=== PATIENT | female | born 1930 | race Caucasian/White ===

== ENCOUNTER 2016-05-05 11:54 | Inpatient (IN) | payer MEDICARE, OTHER ==
--- NOTE | 2016-05-05 12:10 | History and Physical Report ---
History of Present Illnes - History of Present Illness Reason for Visit: Weakness History of Present Illness: Patient admitted to [facility] on 04-28-16 with L intertrochanteric hip fracture after getting her feet wrapped up and fell at her assisted living facility. She underwent dynamic screw fixation to the L hip by Dr. Persaud. While at [facility], she would refuse to swallow. EGD showed a stricture and she underwent dilitation . She now is limited to no cold drinks. Also had urinary retention. Samuels was placed. It was discontinued twice but bladder scans showed bladder not emptying so though samuels was stopped 05/03. Therefore it was replaced yesterday. She also has a h/o HTN. HCTZ and lisinopril were stopped. Due to age, they recommend not restarting HCTZ. BP has been doing ok. Feeling ok today. Mild pain in L hip. Not much of an appetite. PCP is Dr. Dick ([phone]). - Past Medical History Cardiac: HTN, Hyperlipidemia, Other (Complete heart block - s/p pacemaker) Gastrointestinal: GERD Psych: Other (Dementia) Renal/: UTI (recurrent) - Past Surgical History Past Surgical History: Cholecystectomy, Cataract Removal, Hysterectomy (with BSO ), Other (L hip pinning after fracture 05/13.), Total Hip Replacement (R), Total Knee Replacement (B), Other (Pacemaker) - Past Social History Smoke: No Alcohol: None [facility] Other (Daughter Sulema Glynn is DPOA) - Health Maintenance Health Maintenance: Influenza Vaccine, Pneumococcal Vaccine Influenza Vaccine: Current for this Influenza Season Pneumonia Vaccine: Yes Resuscitation Status: Resusciation Status Resuscitation Status Do Not Resuscitate Review of Systems - Review of Systems Constitutional: Weakness. negative: Fever Eyes: negative: pain ENT: negative: Ear Pain Respiratory: negative: Cough Cardiovascular: negative: Chest Pain Gastrointestinal: negative: Nausea, Abdominal Pain Genitourinary: negative: Dysuria Musculoskeletal: negative: Neck Pain Skin: negative: Rash Neurological: Weakness - Medications/Allergies Allergies/Adverse Reactions: Allergies Allergy/AdvReac Type Severity Reaction Status Date / Time aspirin Allergy Verified 05/05/16 12:13 iodine Allergy Verified 05/05/16 12:13 Home Medications: Home Medications Acetaminophen [Tylenol] 650 mg PO Q4 PRN 05/05/16 Bisacodyl 10 mg RC D PRN 05/05/16 Cholecalciferol [Vitamin D-3] 2,000 unit PO DAILY 05/05/16 Cranberry Fruit [Cranberry] 400 mg PO D 05/05/16 Docusate Sodium [Colace] 100 mg PO BID 05/05/16 Enoxaparin Sodium [Lovenox] 40 mg SQ QD 05/05/16 Fluticasone Propionate [Flonase Nasal [place]] 2 spray NS DAILY 05/05/16 Magnesium Hydroxide [Milk of Magnesia] 2,400 mg PO D PRN 05/05/16 Metoprolol Tartrate [Lopressor] 100 mg PO Q12 05/05/16 Pantoprazole Sodium [Protonix] 40 mg PO 0700 05/05/16 Polyethylene Glycol 3350 [Miralax] 17 gm PO 1100 PRN 05/05/16 Exam - Exam General: Alert, Oriented to Person, Oriented to Place, Cooperative, No acute distress HEENT: Atraumatic, PERRLA, EOMI, Mouth Mucous membr. moist/[place], Nose Mucous membr. moist/[place] Neck: Normal Range of Motion Lungs: Clear to auscultation, Normal air movement, Speaks full Sentences Cardiovascular: Regular rate Abdomen: Normal bowel sounds, Soft Integumentary: Normal Extremities: Other (L hip incision - stapled wound C/D/I) Neurological: Generalized Weakness Psych/Mental Status: Mood NL, Appropriate Affect Assessment/Plan - Assessment/Plan (1) Fracture of left hip Status: Acute Current Visit: Yes Qualifiers: Encounter type: subsequent encounter Fracture type: closed Fracture healing: with routine healing Qualified Code(s): S72.002D - Fracture of unspecified part of neck of left femur, subsequent encounter for closed fracture with routine healing Plan: Plan for lovenox for 2 weeks for DVT prevention. Ortho ordered ASA 81mg daily after that however it is listed as patient allergy. Will check with family and patient on that. Xrays in a month for Dr. Persaud. [place] out in 10 days with steristrips to be placed. (2) HTN (hypertension) Status: Chronic Current Visit: No Qualifiers: Hypertension type: essential hypertension Qualified Code(s): I10 - Essential (primary) hypertension Plan: Watch closely off HCTZ and lisinopril. Consider restart lisinopril if goes up. (3) Urinary retention Status: Acute Current Visit: Yes Plan: Continue samuels at this time. Trial of discontinuing next week. (4) Dysphagia Status: Acute Current Visit: Yes Qualifiers: Dysphagia type: other dysphagia Qualified Code(s): R13.19 - Other dysphagia Plan: No cold liquids. Keep upright when drinking. Plan ST consult. (5) Unsteady gait Status: Acute Current Visit: Yes Plan: Admit to SNF for PT/OT/ST. (6) Dementia Status: Chronic Current Visit: No Qualifiers: Dementia type: unspecified type Dementia behavioral disturbance: without behavioral disturbance Qualified Code(s): F03.90 - Unspecified dementia without behavioral disturbance Plan: Stable. (7) Vitamin D deficiency Status: Acute Current Visit: Yes Plan: Vit D replacement started at [facility]. VTE Assessment - RISK FACTOR SCORE VTE RISK FACTOR SCORES: AGE OVER 60 YEARS, HIP, PELVIS, OR LEG FX - RISK VTE MODERATE RISK: SCORE OF 2 (RISK PROXIMAL DVT 2-4%) PROPHYAXIS NEEDED
[2016-05-05] MEDS ORDERED: MAGNESIUM HYDROXIDE 400 MG/5 ML 30ML UDC PO PRN (12:25)
[2016-05-05] MEDS ORDERED: BISACODYL 10 MG SUPP.RECT RC PRN (12:25)
[2016-05-05] MEDS ORDERED: POLYETHYLENE GLYCOL 3350 17 GM POWD.PACK PO PRN (12:25)
[2016-05-05] MEDS: ENOXAPARIN SODIUM 30 MG/0.3 ML DISP.SYRIN SQ SCH (13:22)
[2016-05-05] MEDS: ACETAMINOPHEN 325 MG TABLET PO PRN ×2 (13:34→21:00)
[2016-05-05 16:22] VITALS: BMI 35.3
[2016-05-05] MEDS: METOPROLOL TARTRATE 50 MG TABLET PO SCH (20:24)
[2016-05-05] MEDS: DOCUSATE SODIUM 100 MG CAPSULE PO SCH (20:24)
[2016-05-06] MEDS: PANTOPRAZOLE SODIUM 40 MG TABLET PO SCH (05:20)
[2016-05-06] MEDS ORDERED: CRANBERRY FRUIT 400 MG PO SCH (09:00)
[2016-05-06] MEDS: FLUTICASONE PROPIONATE 120 SPRAY/16 GR BOTTLE NS SCH (09:07)
[2016-05-06] MEDS: METOPROLOL TARTRATE 50 MG TABLET PO SCH ×2 (09:08→20:09)
[2016-05-06] MEDS: CHOLECALCIFEROL 1,000 UNIT TABLET PO SCH (09:08)
[2016-05-06] MEDS: DOCUSATE SODIUM 100 MG CAPSULE PO SCH ×2 (09:23→20:08)
[2016-05-06] MEDS: ENOXAPARIN SODIUM 30 MG/0.3 ML DISP.SYRIN SQ SCH (12:51)
[2016-05-06] MEDS: ACETAMINOPHEN 325 MG TABLET PO PRN (20:12)
[2016-05-07] MEDS: PANTOPRAZOLE SODIUM 40 MG TABLET PO SCH (06:38)
[2016-05-07] MEDS: DOCUSATE SODIUM 100 MG CAPSULE PO SCH ×2 (10:26→20:07)
[2016-05-07] MEDS: ACETAMINOPHEN 325 MG TABLET PO PRN (10:27)
[2016-05-07] MEDS: METOPROLOL TARTRATE 50 MG TABLET PO SCH ×2 (10:27→20:07)
[2016-05-07] MEDS: CHOLECALCIFEROL 1,000 UNIT TABLET PO SCH (10:27)
[2016-05-07] MEDS: CRANBERRY EXTRACT 405 MG PO SCH (10:27)
[2016-05-07] MEDS: FLUTICASONE PROPIONATE 120 SPRAY/16 GR BOTTLE NS SCH (10:38)
[2016-05-07] MEDS: ENOXAPARIN SODIUM 30 MG/0.3 ML DISP.SYRIN SQ SCH (12:54)
[2016-05-07] MEDS ORDERED: SALINE FLUSH 10 ML DISP.SYRIN IV SCH (21:00)
[2016-05-08] MEDS: PANTOPRAZOLE SODIUM 40 MG TABLET PO SCH (06:04)
[2016-05-08] MEDS: FLUTICASONE PROPIONATE 120 SPRAY/16 GR BOTTLE NS SCH (09:37)
[2016-05-08] MEDS: METOPROLOL TARTRATE 50 MG TABLET PO SCH ×2 (09:37→20:06)
[2016-05-08] MEDS: CRANBERRY EXTRACT 405 MG PO SCH (09:37)
[2016-05-08] MEDS: DOCUSATE SODIUM 100 MG CAPSULE PO SCH ×2 (09:38→20:05)
[2016-05-08] MEDS: CHOLECALCIFEROL 1,000 UNIT TABLET PO SCH (09:38)
[2016-05-08] MEDS: ACETAMINOPHEN 325 MG TABLET PO PRN (09:38)
[2016-05-08] MEDS: ENOXAPARIN SODIUM 30 MG/0.3 ML DISP.SYRIN SQ SCH (12:25)
[2016-05-09] MEDS: PANTOPRAZOLE SODIUM 40 MG TABLET PO SCH (06:12)
[2016-05-09] MEDS: ACETAMINOPHEN 325 MG TABLET PO PRN ×2 (09:32→23:25)
[2016-05-09] MEDS: DOCUSATE SODIUM 100 MG CAPSULE PO SCH ×2 (09:32→20:03)
[2016-05-09] MEDS: FLUTICASONE PROPIONATE 120 SPRAY/16 GR BOTTLE NS SCH (09:32)
[2016-05-09] MEDS: CHOLECALCIFEROL 1,000 UNIT TABLET PO SCH (09:32)
[2016-05-09] MEDS: CRANBERRY EXTRACT 405 MG PO SCH (09:32)
[2016-05-09] MEDS: METOPROLOL TARTRATE 50 MG TABLET PO SCH ×2 (09:32→20:03)
[2016-05-09] MEDS: ENOXAPARIN SODIUM 30 MG/0.3 ML DISP.SYRIN SQ SCH (12:33)
[2016-05-10] MEDS: PANTOPRAZOLE SODIUM 40 MG TABLET PO SCH (05:43)
[2016-05-10] MEDS: FLUTICASONE PROPIONATE 120 SPRAY/16 GR BOTTLE NS SCH (08:37)
[2016-05-10] MEDS: CRANBERRY EXTRACT 405 MG PO SCH (08:37)
[2016-05-10] MEDS: METOPROLOL TARTRATE 50 MG TABLET PO SCH ×2 (08:37→20:19)
[2016-05-10] MEDS: DOCUSATE SODIUM 100 MG CAPSULE PO SCH ×2 (08:37→20:19)
[2016-05-10] MEDS: CHOLECALCIFEROL 1,000 UNIT TABLET PO SCH (08:37)
[2016-05-10] MEDS: ACETAMINOPHEN 325 MG TABLET PO PRN ×2 (10:31→20:29)
--- NOTE | 2016-05-10 12:27 | Inpatient Progress Note ---
Subjective - Required Recertification Statement I anticipate X number of days because-include discharge plan: 10 - Review of Systems Subjective: Feels ok. Getting stronger. Pain controlled. Objective - Exam Vitals and I&O: Vital Signs Temp 97.5 F L 05/09/16 21:00 Pulse 78 05/09/16 21:00 Resp 18 05/09/16 21:00 BP 157/60 05/09/16 21:00 Pulse Ox 96 05/09/16 21:00 Intake & Output 05/09/16 05/10/16 05/10/16 23:59 11:59 23:59 Intake Total 840 360 Output Total 600 Balance 840 -240 Weight 81.647 kg Intake: Oral 840 360 Output: Urine 600 Other: Voiding Method Toilet # Voids 650 # Bowel Movements 0 General: Alert, Oriented to Person, Oriented to Place, Oriented to Time, Cooperative, No acute distress Assessment/Plan - Assessment/Plan (1) Fracture of left hip Status: Acute Current Visit: Yes Qualifiers: Encounter type: subsequent encounter Fracture type: closed Fracture healing: with routine healing Qualified Code(s): S72.002D - Fracture of unspecified part of neck of left femur, subsequent encounter for closed fracture with routine healing (2) HTN (hypertension) Status: Chronic Current Visit: No Qualifiers: Hypertension type: essential hypertension Qualified Code(s): I10 - Essential (primary) hypertension Plan: stable. (3) Urinary retention Status: Acute Current Visit: Yes Plan: Will plan to trial d/c samuels this week. (4) Dysphagia Status: Acute Current Visit: Yes Qualifiers: Dysphagia type: other dysphagia Qualified Code(s): R13.19 - Other dysphagia (5) Unsteady gait Status: Acute Current Visit: Yes Plan: cont. PT/OT/ST. (6) Dementia Status: Chronic Current Visit: No Qualifiers: Dementia type: unspecified type Dementia behavioral disturbance: without behavioral disturbance Qualified Code(s): F03.90 - Unspecified dementia without behavioral disturbance (7) Vitamin D deficiency Status: Acute Current Visit: Yes
[2016-05-10] MEDS: ENOXAPARIN SODIUM 30 MG/0.3 ML DISP.SYRIN SQ SCH (13:01)
[2016-05-11] MEDS: PANTOPRAZOLE SODIUM 40 MG TABLET PO SCH (06:20)
[2016-05-11] MEDS: FLUTICASONE PROPIONATE 120 SPRAY/16 GR BOTTLE NS SCH (08:13)
[2016-05-11] MEDS: CHOLECALCIFEROL 1,000 UNIT TABLET PO SCH (08:13)
[2016-05-11] MEDS: ACETAMINOPHEN 325 MG TABLET PO PRN ×2 (08:13→12:41)
[2016-05-11] MEDS: DOCUSATE SODIUM 100 MG CAPSULE PO SCH ×2 (08:14→20:38)
[2016-05-11] MEDS: CRANBERRY EXTRACT 405 MG PO SCH (08:14)
[2016-05-11] MEDS: METOPROLOL TARTRATE 50 MG TABLET PO SCH ×2 (08:14→20:38)
[2016-05-11] MEDS: ENOXAPARIN SODIUM 30 MG/0.3 ML DISP.SYRIN SQ SCH (12:36)
[2016-05-12] MEDS: PANTOPRAZOLE SODIUM 40 MG TABLET PO SCH (06:11)
[2016-05-12] MEDS: ACETAMINOPHEN 325 MG TABLET PO PRN ×3 (09:15→17:46)
[2016-05-12] MEDS: DOCUSATE SODIUM 100 MG CAPSULE PO SCH ×2 (09:15→20:07)
[2016-05-12] MEDS: CHOLECALCIFEROL 1,000 UNIT TABLET PO SCH (09:15)
[2016-05-12] MEDS: METOPROLOL TARTRATE 50 MG TABLET PO SCH ×2 (09:15→20:07)
[2016-05-12] MEDS: FLUTICASONE PROPIONATE 120 SPRAY/16 GR BOTTLE NS SCH (09:15)
[2016-05-12] MEDS: CRANBERRY EXTRACT 405 MG PO SCH (09:15)
[2016-05-12] MEDS: ENOXAPARIN SODIUM 30 MG/0.3 ML DISP.SYRIN SQ SCH (12:57)
[2016-05-13] MEDS: ACETAMINOPHEN 325 MG TABLET PO PRN ×2 (05:39→11:32)
[2016-05-13] MEDS: PANTOPRAZOLE SODIUM 40 MG TABLET PO SCH (05:39)
[2016-05-13] MEDS: FLUTICASONE PROPIONATE 120 SPRAY/16 GR BOTTLE NS SCH (08:00)
[2016-05-13] MEDS: DOCUSATE SODIUM 100 MG CAPSULE PO SCH ×2 (08:00→20:07)
[2016-05-13] MEDS: CRANBERRY EXTRACT 405 MG PO SCH (08:00)
[2016-05-13] MEDS: CHOLECALCIFEROL 1,000 UNIT TABLET PO SCH (08:01)
[2016-05-13] MEDS: METOPROLOL TARTRATE 50 MG TABLET PO SCH ×2 (08:01→20:08)
[2016-05-13] MEDS: ENOXAPARIN SODIUM 30 MG/0.3 ML DISP.SYRIN SQ SCH (14:04)
[2016-05-14] MEDS: PANTOPRAZOLE SODIUM 40 MG TABLET PO SCH (06:08)
[2016-05-14] MEDS: DOCUSATE SODIUM 100 MG CAPSULE PO SCH ×2 (08:44→20:07)
[2016-05-14] MEDS: CHOLECALCIFEROL 1,000 UNIT TABLET PO SCH (08:44)
[2016-05-14] MEDS: METOPROLOL TARTRATE 50 MG TABLET PO SCH ×2 (08:44→20:07)
[2016-05-14] MEDS: CRANBERRY EXTRACT 405 MG PO SCH (08:44)
[2016-05-14] MEDS: FLUTICASONE PROPIONATE 120 SPRAY/16 GR BOTTLE NS SCH (08:44)
[2016-05-14] MEDS: ENOXAPARIN SODIUM 30 MG/0.3 ML DISP.SYRIN SQ SCH (12:49)
[2016-05-15] MEDS: PANTOPRAZOLE SODIUM 40 MG TABLET PO SCH (05:46)
[2016-05-15] MEDS: DOCUSATE SODIUM 100 MG CAPSULE PO SCH ×2 (08:25→19:46)
[2016-05-15] MEDS: FLUTICASONE PROPIONATE 120 SPRAY/16 GR BOTTLE NS SCH (08:26)
[2016-05-15] MEDS: METOPROLOL TARTRATE 50 MG TABLET PO SCH ×2 (08:26→19:40)
[2016-05-15] MEDS: CHOLECALCIFEROL 1,000 UNIT TABLET PO SCH (08:26)
[2016-05-15] MEDS: CRANBERRY EXTRACT 405 MG PO SCH (08:28)
[2016-05-15] MEDS: ENOXAPARIN SODIUM 30 MG/0.3 ML DISP.SYRIN SQ SCH (13:05)
[2016-05-16] MEDS: PANTOPRAZOLE SODIUM 40 MG TABLET PO SCH (06:40)
[2016-05-16] MEDS: FLUTICASONE PROPIONATE 120 SPRAY/16 GR BOTTLE NS SCH (08:40)
[2016-05-16] MEDS: DOCUSATE SODIUM 100 MG CAPSULE PO SCH ×2 (08:41→21:00)
[2016-05-16] MEDS: CHOLECALCIFEROL 1,000 UNIT TABLET PO SCH (08:41)
[2016-05-16] MEDS: METOPROLOL TARTRATE 50 MG TABLET PO SCH ×2 (08:41→21:00)
[2016-05-16] MEDS: ACETAMINOPHEN 325 MG TABLET PO PRN ×2 (08:41→21:00)
[2016-05-16] MEDS: CRANBERRY EXTRACT 405 MG PO SCH (08:43)
[2016-05-16] MEDS: ENOXAPARIN SODIUM 30 MG/0.3 ML DISP.SYRIN SQ SCH (13:28)
[2016-05-17] MEDS: PANTOPRAZOLE SODIUM 40 MG TABLET PO SCH (06:43)
[2016-05-17] MEDS: METOPROLOL TARTRATE 50 MG TABLET PO SCH ×2 (08:25→20:12)
[2016-05-17] MEDS: CHOLECALCIFEROL 1,000 UNIT TABLET PO SCH (08:25)
[2016-05-17] MEDS: DOCUSATE SODIUM 100 MG CAPSULE PO SCH ×2 (08:25→20:12)
[2016-05-17] MEDS: CRANBERRY EXTRACT 405 MG PO SCH (08:25)
[2016-05-17] MEDS: FLUTICASONE PROPIONATE 120 SPRAY/16 GR BOTTLE NS SCH (08:25)
[2016-05-17] MEDS: ENOXAPARIN SODIUM 30 MG/0.3 ML DISP.SYRIN SQ SCH (13:02)
[2016-05-18] MEDS: PANTOPRAZOLE SODIUM 40 MG TABLET PO SCH (06:12)
[2016-05-18] MEDS: DOCUSATE SODIUM 100 MG CAPSULE PO SCH ×2 (08:13→20:11)
[2016-05-18] MEDS: FLUTICASONE PROPIONATE 120 SPRAY/16 GR BOTTLE NS SCH (08:14)
[2016-05-18] MEDS: CRANBERRY EXTRACT 405 MG PO SCH (08:15)
[2016-05-18] MEDS: METOPROLOL TARTRATE 50 MG TABLET PO SCH ×2 (08:15→20:11)
[2016-05-18] MEDS: CHOLECALCIFEROL 1,000 UNIT TABLET PO SCH (08:15)
[2016-05-18] MEDS: ENOXAPARIN SODIUM 30 MG/0.3 ML DISP.SYRIN SQ SCH (13:29)
[2016-05-19] MEDS: PANTOPRAZOLE SODIUM 40 MG TABLET PO SCH (06:15)
--- NOTE | 2016-05-19 07:41 | Inpatient Progress Note ---
Subjective - Required Recertification Statement I anticipate X number of days because-include discharge plan: 7 - Review of Systems Events since last encounter: Patient has been having urinary retention since surgery. Samuels was d/c'd 05/10 but replaced 05/11 due to inability to void. Mild cough. No SOB. Subjective: Feels ok. Getting stronger. Pain controlled. Objective - Exam Vitals and I&O: Vital Signs Temp 97.8 F 05/18/16 21:00 Pulse 78 05/18/16 21:00 Resp 20 05/18/16 21:00 BP 136/68 05/18/16 21:00 Pulse Ox 92 05/18/16 21:00 Intake & Output 05/18/16 05/18/16 05/19/16 11:59 23:59 11:59 Intake Total 240 1280 Output Total 600 950 Balance -360 330 Intake: Oral 240 1280 Output: Urine 600 950 Other: Voiding Method Toilet Indwelling Catheter # Bowel Movements 1 General: Alert, Oriented to Person, Oriented to Place, Oriented to Time, Cooperative, No acute distress Lungs: Clear to auscultation, Normal air movement, Speaks full Sentences Assessment/Plan - Assessment/Plan (1) Fracture of left hip Status: Acute Current Visit: Yes Qualifiers: Encounter type: subsequent encounter Fracture type: closed Fracture healing: with routine healing Qualified Code(s): S72.002D - Fracture of unspecified part of neck of left femur, subsequent encounter for closed fracture with routine healing Plan: Cont. PT/OT. (2) Urinary retention Status: Acute Current Visit: Yes Plan: Trial of discontinuing samuels. (3) Unsteady gait Status: Acute Current Visit: Yes (4) Cough Status: Acute Current Visit: Yes Plan: CXR today.
[2016-05-19] MEDS: CRANBERRY EXTRACT 405 MG PO SCH (08:51)
[2016-05-19] MEDS: FLUTICASONE PROPIONATE 120 SPRAY/16 GR BOTTLE NS SCH (08:51)
[2016-05-19] MEDS: DOCUSATE SODIUM 100 MG CAPSULE PO SCH ×2 (08:51→19:35)
[2016-05-19] MEDS: CHOLECALCIFEROL 1,000 UNIT TABLET PO SCH (08:52)
[2016-05-19] MEDS: METOPROLOL TARTRATE 50 MG TABLET PO SCH ×2 (08:52→19:35)
--- NOTE | 2016-05-19 20:11 | Diagnostic Imaging Report ---
[facility] [id number] [facility].[address] [address] ~ ~ ~ ~ Report Submission Date: May 19, 2016 3:15:25 PM SOUND TRUCK OPERATOR Patient ~ Study Name: MARIELOS RUDOLPH ~ Date: May 19, 2016 11:03:55 AM SOUND TRUCK OPERATOR ~ Modality Type: CR Gender: F ~ Description: CHEST : [birth year] ~ Institution: [facility] Physician: LIZZIE RAYMUNDO ~ ~ ~ ~ Chest 2 views History: 3 weeks of cough Findings: The lungs are clear and mildly hyperinflated. No pleural effusions are observed. Atherosclerosis and dual lead transvenous pacemaker are present. Heart size is normal. Impression: Hyperinflation and pacemaker. ~ Electronically signed on May 19, 2016 3:15:25 PM SOUND TRUCK OPERATOR by: Oniel COOLEY
[2016-05-20] MEDS: PANTOPRAZOLE SODIUM 40 MG TABLET PO SCH (06:17)
[2016-05-20] MEDS: CHOLECALCIFEROL 1,000 UNIT TABLET PO SCH (08:21)
[2016-05-20] MEDS: METOPROLOL TARTRATE 50 MG TABLET PO SCH ×2 (08:21→19:49)
[2016-05-20] MEDS: CRANBERRY EXTRACT 405 MG PO SCH (08:22)
[2016-05-20] MEDS: FLUTICASONE PROPIONATE 120 SPRAY/16 GR BOTTLE NS SCH (08:22)
[2016-05-20] MEDS: DOCUSATE SODIUM 100 MG CAPSULE PO SCH ×2 (08:22→19:48)
[2016-05-21] MEDS: PANTOPRAZOLE SODIUM 40 MG TABLET PO SCH (06:15)
[2016-05-21] MEDS: FLUTICASONE PROPIONATE 120 SPRAY/16 GR BOTTLE NS SCH (09:02)
[2016-05-21] MEDS: DOCUSATE SODIUM 100 MG CAPSULE PO SCH ×2 (09:02→19:40)
[2016-05-21] MEDS: METOPROLOL TARTRATE 50 MG TABLET PO SCH ×2 (09:02→19:40)
[2016-05-21] MEDS: CRANBERRY EXTRACT 405 MG PO SCH (09:02)
[2016-05-21] MEDS: CHOLECALCIFEROL 1,000 UNIT TABLET PO SCH (09:03)
[2016-05-22] MEDS: PANTOPRAZOLE SODIUM 40 MG TABLET PO SCH (06:04)
[2016-05-22] MEDS: METOPROLOL TARTRATE 50 MG TABLET PO SCH ×2 (08:33→21:48)
[2016-05-22] MEDS: FLUTICASONE PROPIONATE 120 SPRAY/16 GR BOTTLE NS SCH (08:33)
[2016-05-22] MEDS: DOCUSATE SODIUM 100 MG CAPSULE PO SCH ×2 (08:33→21:48)
[2016-05-22] MEDS: CHOLECALCIFEROL 1,000 UNIT TABLET PO SCH (08:33)
[2016-05-22] MEDS: CRANBERRY EXTRACT 405 MG PO SCH (08:33)
[2016-05-23] MEDS: PANTOPRAZOLE SODIUM 40 MG TABLET PO SCH (06:05)
[2016-05-23] MEDS: DOCUSATE SODIUM 100 MG CAPSULE PO SCH ×2 (08:25→20:15)
[2016-05-23] MEDS: FLUTICASONE PROPIONATE 120 SPRAY/16 GR BOTTLE NS SCH (08:26)
[2016-05-23] MEDS: METOPROLOL TARTRATE 50 MG TABLET PO SCH ×2 (08:27→20:15)
[2016-05-23] MEDS: CHOLECALCIFEROL 1,000 UNIT TABLET PO SCH (08:28)
[2016-05-23] MEDS: ACETAMINOPHEN 325 MG TABLET PO PRN (08:36)
[2016-05-23] MEDS: CRANBERRY EXTRACT 405 MG PO SCH (08:36)
[2016-05-24] MEDS: PANTOPRAZOLE SODIUM 40 MG TABLET PO SCH (06:17)
[2016-05-24] MEDS: CHOLECALCIFEROL 1,000 UNIT TABLET PO SCH (09:42)
[2016-05-24] MEDS: FLUTICASONE PROPIONATE 120 SPRAY/16 GR BOTTLE NS SCH (09:42)
[2016-05-24] MEDS: METOPROLOL TARTRATE 50 MG TABLET PO SCH ×2 (09:43→20:13)
[2016-05-24] MEDS: DOCUSATE SODIUM 100 MG CAPSULE PO SCH ×2 (09:43→20:13)
[2016-05-24] MEDS: CRANBERRY EXTRACT 405 MG PO SCH (09:45)
[2016-05-25] MEDS: PANTOPRAZOLE SODIUM 40 MG TABLET PO SCH (06:19)
--- NOTE | 2016-05-25 07:56 | Inpatient Progress Note ---
Subjective - Required Recertification Statement I anticipate X number of days because-include discharge plan: 7 - Review of Systems Subjective: Patient feels good. Voiding well since samuels out. Cough almost gone. Objective - Exam Vitals and I&O: Vital Signs Temp 98.1 F 05/24/16 21:00 Pulse 74 05/24/16 21:00 Resp 18 05/24/16 21:00 BP 134/70 05/24/16 21:00 Pulse Ox 93 05/24/16 21:00 Intake & Output 05/24/16 05/24/16 05/25/16 11:59 23:59 11:59 Intake Total 360 600 Balance 360 600 Weight 83.915 kg Intake: Oral 360 600 Other: Voiding Method Toilet Toilet # Voids 3 2 General: Alert, Oriented to Person, Oriented to Place, Oriented to Time, Cooperative, No acute distress Lungs: Clear to auscultation, Normal air movement, Speaks full Sentences Assessment/Plan - Assessment/Plan (1) Fracture of left hip Status: Acute Current Visit: Yes Qualifiers: Encounter type: subsequent encounter Fracture type: closed Fracture healing: with routine healing Qualified Code(s): S72.002D - Fracture of unspecified part of neck of left femur, subsequent encounter for closed fracture with routine healing Plan: Cont. PT/OT. Plan d/c next week. (2) Urinary retention Status: Acute Current Visit: Yes Plan: Doing well since samuels discontinued. (3) Unsteady gait Status: Acute Current Visit: Yes (4) Cough Status: Acute Current Visit: Yes Plan: CXR negative last week. Cough almost resolved.
[2016-05-25] MEDS: ACETAMINOPHEN 325 MG TABLET PO PRN (08:55)
[2016-05-25] MEDS: CHOLECALCIFEROL 1,000 UNIT TABLET PO SCH (08:55)
[2016-05-25] MEDS: FLUTICASONE PROPIONATE 120 SPRAY/16 GR BOTTLE NS SCH (08:55)
[2016-05-25] MEDS: DOCUSATE SODIUM 100 MG CAPSULE PO SCH ×2 (08:56→20:24)
[2016-05-25] MEDS: METOPROLOL TARTRATE 50 MG TABLET PO SCH ×2 (08:56→20:24)
[2016-05-25] MEDS: CRANBERRY EXTRACT 405 MG PO SCH (08:56)
[2016-05-26] MEDS: PANTOPRAZOLE SODIUM 40 MG TABLET PO SCH (05:42)
[2016-05-26] MEDS: FLUTICASONE PROPIONATE 120 SPRAY/16 GR BOTTLE NS SCH (09:03)
[2016-05-26] MEDS: ACETAMINOPHEN 325 MG TABLET PO PRN (09:03)
[2016-05-26] MEDS: DOCUSATE SODIUM 100 MG CAPSULE PO SCH ×2 (09:03→14:50)
[2016-05-26] MEDS: METOPROLOL TARTRATE 50 MG TABLET PO SCH ×2 (09:03→19:43)
[2016-05-26] MEDS: CHOLECALCIFEROL 1,000 UNIT TABLET PO SCH (09:03)
[2016-05-26] MEDS: CRANBERRY EXTRACT 405 MG PO SCH (09:03)
[2016-05-27] MEDS: ACETAMINOPHEN 325 MG TABLET PO PRN (04:57)
[2016-05-27] MEDS: PANTOPRAZOLE SODIUM 40 MG TABLET PO SCH (06:34)
[2016-05-27] MEDS: METOPROLOL TARTRATE 50 MG TABLET PO SCH ×2 (08:31→20:22)
[2016-05-27] MEDS: CHOLECALCIFEROL 1,000 UNIT TABLET PO SCH (08:31)
[2016-05-27] MEDS: CRANBERRY EXTRACT 405 MG PO SCH (08:32)
[2016-05-27] MEDS: FLUTICASONE PROPIONATE 120 SPRAY/16 GR BOTTLE NS SCH (08:32)
[2016-05-27] MEDS: DOCUSATE SODIUM 100 MG CAPSULE PO SCH ×2 (08:32→20:22)
[2016-05-28] MEDS: PANTOPRAZOLE SODIUM 40 MG TABLET PO SCH (05:14)
[2016-05-28] MEDS: FLUTICASONE PROPIONATE 120 SPRAY/16 GR BOTTLE NS SCH (08:19)
[2016-05-28] MEDS: METOPROLOL TARTRATE 50 MG TABLET PO SCH ×2 (08:20→20:52)
[2016-05-28] MEDS: DOCUSATE SODIUM 100 MG CAPSULE PO SCH ×2 (08:20→20:52)
[2016-05-28] MEDS: CHOLECALCIFEROL 1,000 UNIT TABLET PO SCH (08:20)
[2016-05-28] MEDS: CRANBERRY EXTRACT 405 MG PO SCH (08:20)
[2016-05-29] MEDS: PANTOPRAZOLE SODIUM 40 MG TABLET PO SCH (05:52)
[2016-05-29] MEDS: METOPROLOL TARTRATE 50 MG TABLET PO SCH ×2 (08:32→19:41)
[2016-05-29] MEDS: CHOLECALCIFEROL 1,000 UNIT TABLET PO SCH (08:32)
[2016-05-29] MEDS: DOCUSATE SODIUM 100 MG CAPSULE PO SCH ×2 (08:32→19:41)
[2016-05-29] MEDS: FLUTICASONE PROPIONATE 120 SPRAY/16 GR BOTTLE NS SCH (08:33)
[2016-05-29] MEDS: CRANBERRY EXTRACT 405 MG PO SCH (09:50)
[2016-05-30] MEDS: PANTOPRAZOLE SODIUM 40 MG TABLET PO SCH (06:01)
[2016-05-30] MEDS: CHOLECALCIFEROL 1,000 UNIT TABLET PO SCH (08:55)
[2016-05-30] MEDS: CRANBERRY EXTRACT 405 MG PO SCH (08:55)
[2016-05-30] MEDS: DOCUSATE SODIUM 100 MG CAPSULE PO SCH ×2 (08:55→19:43)
[2016-05-30] MEDS: METOPROLOL TARTRATE 50 MG TABLET PO SCH ×2 (08:55→19:43)
[2016-05-30] MEDS: FLUTICASONE PROPIONATE 120 SPRAY/16 GR BOTTLE NS SCH (08:55)
[2016-05-30 14:53] LABS: APPEARANCE,URINE Clear (CLEAR); COLOR,URINE Yellow (YELLOW); OCCULT BLOOD,URINE Negative (NEGATIVE); PH URINE 5.5 (5.0 - 8.0); UROBILINOGEN URINE 0.2 Eu (0.2-1.0)
[2016-05-31] MEDS: PANTOPRAZOLE SODIUM 40 MG TABLET PO SCH (06:16)
[2016-05-31] MEDS: DOCUSATE SODIUM 100 MG CAPSULE PO SCH ×2 (08:48→20:27)
[2016-05-31] MEDS: ACETAMINOPHEN 325 MG TABLET PO PRN (08:48)
[2016-05-31] MEDS: FLUTICASONE PROPIONATE 120 SPRAY/16 GR BOTTLE NS SCH (08:49)
[2016-05-31] MEDS: METOPROLOL TARTRATE 50 MG TABLET PO SCH ×2 (08:49→20:27)
[2016-05-31] MEDS: CHOLECALCIFEROL 1,000 UNIT TABLET PO SCH (08:49)
[2016-05-31] MEDS: CRANBERRY EXTRACT 405 MG PO SCH (08:49)
[2016-06-01] MEDS: PANTOPRAZOLE SODIUM 40 MG TABLET PO SCH (06:21)
--- NOTE | 2016-06-01 07:50 | Inpatient Progress Note ---
Subjective - Required Recertification Statement I anticipate X number of days because-include discharge plan: 7 - Review of Systems Subjective: Patient feeling ok. Voiding ok. Urine culture done earlier this week due to decreased void and foul smell. Objective - Exam Vitals and I&O: Vital Signs Temp 96.6 F L 05/31/16 21:00 Pulse 88 05/31/16 21:00 Resp 18 05/31/16 21:00 BP 164/68 05/31/16 21:00 Pulse Ox 97 05/31/16 21:00 Intake & Output 05/31/16 05/31/16 06/01/16 11:59 23:59 11:59 Intake Total 480 0 120 Balance 480 0 120 Intake: Oral 480 0 120 Other: Voiding Method Toilet Toilet # Bowel Movements 0 General: Alert, Oriented to Person, Oriented to Place, Oriented to Time, Cooperative, No acute distress Lungs: Clear to auscultation, Normal air movement, Speaks full Sentences - Results Results: Laboratory Results Urine Color Yellow (YELLOW) 05/30/16 14:40 Urine Appearance Clear (CLEAR) 05/30/16 14:40 Urine pH 5.5 (5.0 - 8.0) 05/30/16 14:40 Ur Specific [place] 1.010 (1.010-1.030) 05/30/16 14:40 Urine Protein Negative mg/dL (NEGATIVE) 05/30/16 14:40 Urine Ketones Negative mg/dL (NEGATIVE) 05/30/16 14:40 Urine Occult Blood Negative (NEGATIVE) 05/30/16 14:40 Urine Nitrite Negative (NEGATIVE) 05/30/16 14:40 Urine Bilirubin Negative (NEGATIVE) 05/30/16 14:40 Urine Urobilinogen 0.2 Eu (0.2-1.0) 05/30/16 14:40 Ur Leukocyte Esterase Trace (NEGATIVE) 05/30/16 14:40 Urine Glucose Negative mg/dL (NEGATIVE) 05/30/16 14:40 Assessment/Plan - Assessment/Plan (1) Fracture of left hip Status: Acute Current Visit: Yes Qualifiers: Encounter type: subsequent encounter Fracture type: closed Fracture healing: with routine healing Qualified Code(s): S72.002D - Fracture of unspecified part of neck of left femur, subsequent encounter for closed fracture with routine healing Plan: Cont. PT/OT. (2) Urinary retention Status: Acute Current Visit: Yes Plan: BM yesterday. Voiding better. (3) Unsteady gait Status: Acute Current Visit: Yes (4) Cough Status: Acute Current Visit: Yes
[2016-06-01] MEDS: DOCUSATE SODIUM 100 MG CAPSULE PO SCH ×2 (09:36→20:00)
[2016-06-01] MEDS: METOPROLOL TARTRATE 50 MG TABLET PO SCH ×2 (09:36→20:00)
[2016-06-01] MEDS: FLUTICASONE PROPIONATE 120 SPRAY/16 GR BOTTLE NS SCH (09:36)
[2016-06-01] MEDS: CHOLECALCIFEROL 1,000 UNIT TABLET PO SCH (09:37)
[2016-06-01] MEDS: CRANBERRY EXTRACT 405 MG PO SCH (09:37)
[2016-06-02] MEDS: PANTOPRAZOLE SODIUM 40 MG TABLET PO SCH (05:53)
[2016-06-02] MEDS: FLUTICASONE PROPIONATE 120 SPRAY/16 GR BOTTLE NS SCH (08:41)
[2016-06-02] MEDS: DOCUSATE SODIUM 100 MG CAPSULE PO SCH ×2 (08:41→20:00)
[2016-06-02] MEDS: CHOLECALCIFEROL 1,000 UNIT TABLET PO SCH (08:42)
[2016-06-02] MEDS: METOPROLOL TARTRATE 50 MG TABLET PO SCH ×2 (08:42→20:00)
[2016-06-02] MEDS: CRANBERRY EXTRACT 405 MG PO SCH (08:42)
[2016-06-03] MEDS: PANTOPRAZOLE SODIUM 40 MG TABLET PO SCH (05:44)
[2016-06-03] MEDS: DOCUSATE SODIUM 100 MG CAPSULE PO SCH ×2 (09:31→19:32)
[2016-06-03] MEDS: METOPROLOL TARTRATE 50 MG TABLET PO SCH ×2 (09:31→19:32)
[2016-06-03] MEDS: CRANBERRY EXTRACT 405 MG PO SCH (09:31)
[2016-06-03] MEDS: CHOLECALCIFEROL 1,000 UNIT TABLET PO SCH (09:31)
[2016-06-03] MEDS: FLUTICASONE PROPIONATE 120 SPRAY/16 GR BOTTLE NS SCH (09:32)
[2016-06-03] MEDS: ACETAMINOPHEN 325 MG TABLET PO PRN (13:27)
[2016-06-04] MEDS: PANTOPRAZOLE SODIUM 40 MG TABLET PO SCH (05:59)
[2016-06-04] MEDS: ACETAMINOPHEN 325 MG TABLET PO PRN (07:20)
[2016-06-04] MEDS: FLUTICASONE PROPIONATE 120 SPRAY/16 GR BOTTLE NS SCH (08:35)
[2016-06-04] MEDS: METOPROLOL TARTRATE 50 MG TABLET PO SCH ×2 (08:36→19:17)
[2016-06-04] MEDS: DOCUSATE SODIUM 100 MG CAPSULE PO SCH ×2 (08:36→19:17)
[2016-06-04] MEDS: CRANBERRY EXTRACT 405 MG PO SCH (08:36)
[2016-06-04] MEDS: CHOLECALCIFEROL 1,000 UNIT TABLET PO SCH (08:36)
[2016-06-05] MEDS: PANTOPRAZOLE SODIUM 40 MG TABLET PO SCH (06:04)
[2016-06-05] MEDS: DOCUSATE SODIUM 100 MG CAPSULE PO SCH ×2 (08:41→19:50)
[2016-06-05] MEDS: CRANBERRY EXTRACT 405 MG PO SCH (08:42)
[2016-06-05] MEDS: METOPROLOL TARTRATE 50 MG TABLET PO SCH ×2 (08:42→19:50)
[2016-06-05] MEDS: FLUTICASONE PROPIONATE 120 SPRAY/16 GR BOTTLE NS SCH (08:42)
[2016-06-05] MEDS: CHOLECALCIFEROL 1,000 UNIT TABLET PO SCH (08:43)
[2016-06-05] MEDS: SULFAMETHOXAZOLE/TRIMETHOPRIM 1 EACH TABLET PO SCH (20:08)
[2016-06-06] MEDS: PANTOPRAZOLE SODIUM 40 MG TABLET PO SCH (05:19)
[2016-06-06] MEDS: SULFAMETHOXAZOLE/TRIMETHOPRIM 1 EACH TABLET PO SCH (08:48)
[2016-06-06] MEDS: FLUTICASONE PROPIONATE 120 SPRAY/16 GR BOTTLE NS SCH (08:49)
[2016-06-06] MEDS: METOPROLOL TARTRATE 50 MG TABLET PO SCH ×2 (08:49→20:38)
[2016-06-06] MEDS: CRANBERRY EXTRACT 405 MG PO SCH (08:49)
[2016-06-06] MEDS: DOCUSATE SODIUM 100 MG CAPSULE PO SCH ×2 (08:49→20:38)
[2016-06-06] MEDS: CHOLECALCIFEROL 1,000 UNIT TABLET PO SCH (08:50)
--- NOTE | 2016-06-06 14:23 | Diagnostic Imaging Report ---
[facility] [address] [facility].[address] [address] Report Submission Date: Jun 06, 2016 1:41:54 PM BURNER SHAFT Patient Study Name: MARIELOS RUDOLPH Date: Jun 06, 2016 1:18:20 PM BURNER SHAFT Modality Type: CR Gender: F Description: PELVIS : [birth year] Institution: [facility] Physician: LIZZIE RAYMUNDO Left hip -two views CLINICAL HISTORY: Follow-up left hip surgery. FINDINGS: Examination left hip in AP and frog-leg lateral views demonstrates a metallic plate secured to the lateral aspect of proximal femoral shaft by cortical screws. Compression screw overlies the femoral neck and head. The hip joint space is narrowed with osteophyte formation. Sclerosis is seen in the intertrochanteric region consistent with healing fracture. IMPRESSION: Postoperative changes. Healing intertrochanteric fracture. Degenerative changes in the hip joint. Electronically signed on Jun 06, 2016 1:41:54 PM BURNER SHAFT by: Brooks COOLEY
[2016-06-06] MEDS: CIPROFLOXACIN HCL 500 MG TABLET PO SCH (20:38)
[2016-06-07] MEDS: PANTOPRAZOLE SODIUM 40 MG TABLET PO SCH (05:49)
--- NOTE | 2016-06-07 06:49 | Discharge Summary ---
Discharge Summary - Discharge Sumary History of Present Illness: Patient admitted to [facility] on 04-28-16 with L intertrochanteric hip fracture after getting her feet wrapped up and fell at her assisted living facility. She underwent dynamic screw fixation to the L hip by Dr. Persaud. While at [facility], she would refuse to swallow. EGD showed a stricture and she underwent dilitation . She now is limited to no cold drinks. Also had urinary retention. Samuels was placed. It was discontinued twice but bladder scans showed bladder not emptying so though samuels was stopped 05/03. Therefore it was replaced yesterday. She also has a h/o HTN. HCTZ and lisinopril were stopped. Due to age, they recommend not restarting HCTZ. BP has been doing ok. Feeling ok today. Mild pain in L hip. Not much of an appetite. Condition at Discharge: Stable Home Medications: Ambulatory Orders Medication Instructions Recorded Acetaminophen [Tylenol] 650 mg PO Q4 PRN 05/05/16 Bisacodyl 10 mg RC D PRN 05/05/16 Cholecalciferol [Vitamin D-3] 2,000 unit PO DAILY 05/05/16 Cranberry Fruit [Cranberry] 400 mg PO D 05/05/16 Docusate Sodium [Colace] 100 mg PO BID 05/05/16 Fluticasone Propionate [Flonase] 2 spray NS DAILY 05/05/16 Magnesium Hydroxide [Milk of 2,400 mg PO D PRN 05/05/16 Magnesia] Metoprolol Tartrate [Lopressor] 100 mg PO Q12 05/05/16 Pantoprazole Sodium [Protonix] 40 mg PO 0700 05/05/16 Polyethylene Glycol 3350 [Miralax] 17 gm PO 1100 PRN 05/05/16 Ciprofloxacin HCl [Cipro] 500 mg PO BID #14 tablet 06/07/16 Consultations this Visit: None Procedures this Visit: None Allergies/Adverse Reactions: Allergies Allergy/AdvReac Type Severity Reaction Status Date / Time iodine Allergy Verified 05/05/16 12:13 Patient Problems: Current Active Problems Problem Status Onset Cough Acute Dysphagia Acute Fracture of left hip Acute Unsteady gait Acute Urinary retention Acute Vitamin D deficiency Acute Discharge Summary: Patient did well with PT/OT for L hip fracture. Also started on ST for memory issues. Pain and bowels controlled. Rajni removed 05-16-16 with no wound concerns. She came with a samuels due to urinary retention. This was removed once but had to be replaced due to continued retention. Able to discontinue it on 05-20. Due to return of retention symptoms, Urine culture done. Cath specimen was obtained to check bladder volume. only 125 cc present. Urine culture showed enterobacter and cipro was started. She will complete 8 days. BP remained stable. Patient able to transfer back to [facility] in good condition to continue PT/OT/ST. Hospital Course: Discharge Dx: L femur fx. HTN. UTI with h/o urinary retention. mild dementia. discharge disposition -[facility]
[2016-06-07] MEDS: CRANBERRY EXTRACT 405 MG PO SCH (08:41)
[2016-06-07] MEDS: FLUTICASONE PROPIONATE 120 SPRAY/16 GR BOTTLE NS SCH (08:41)
[2016-06-07] MEDS: DOCUSATE SODIUM 100 MG CAPSULE PO SCH (08:41)
[2016-06-07] MEDS: CIPROFLOXACIN HCL 500 MG TABLET PO SCH (08:41)
[2016-06-07] MEDS: METOPROLOL TARTRATE 50 MG TABLET PO SCH (08:42)
[2016-06-07] MEDS: CHOLECALCIFEROL 1,000 UNIT TABLET PO SCH (08:42)
[2016-06-07 11:02] VITALS: BP 119/52
== END 2016-06-07 10:45 | DRG 561 ==
LOC: SOUTH 11:54
PROVIDERS: ADMIT Family Medicine; ATTEND Family Medicine
DX: S72.002D Fracture of unspecified part of neck of left femur, subsequent encounter for closed fracture with routine healing (principal); I10 Essential (primary) hypertension; Z79.899 Other long term (current) drug therapy; R33.9 Retention of urine, unspecified; R13.19 Other dysphagia; R26.81 Unsteadiness on feet; R54 Age-related physical debility; F03.90 Unspecified dementia, unspecified severity, without behavioral disturbance, psychotic disturbance, mood disturbance, and anxiety; E55.9 Vitamin D deficiency, unspecified
CPT/HCPCS: 71020; 73502; 81002; 87088; 87186; 92526; 92610; 97001; 97003; 97110; 97112; 97116; 97530; 97535; A9270; J1650

== ENCOUNTER 2018-02-27 14:54 | Outpatient (CLI) | payer MEDICARE, OTHER ==
[2018-02-27 16:58] LABS: APPEARANCE,URINE CLOUDY (CLEAR); COLOR,URINE YELLOW (YELLOW)
[2018-02-27 17:00] LABS: OCCULT BLOOD,URINE NEGATIVE (NEGATIVE)
== END 2018-02-27 14:55 ==
LOC: LAB 14:54
PROVIDERS: ATTEND Urology
DX: R32 Unspecified urinary incontinence (principal); N39.0 Urinary tract infection, site not specified
CPT/HCPCS: 81002; 87086